=== PATIENT | male | born 1990 | race Caucasian/White ===

== ENCOUNTER 2019-04-13 07:57 | Emergency (ER) | payer BC, OTHER ==
[~2019-04-13] VITALS: Ht 185.4 cm; Wt 90.7 kg
[2019-04-13 07:59] VITALS: BP 117/72; Ht 185.4 cm; Wt 90.7 kg
== END 2019-04-13 10:08 | disposition home or self-care (01) ==
LOC: ED 07:57
DX: R10.9 Unspecified abdominal pain (principal); E03.9 Hypothyroidism, unspecified; Z88.0 Allergy status to penicillin
CPT/HCPCS: J1885; J2270